=== PATIENT | female | born 1960 | race Caucasian/White ===

== ENCOUNTER → 2016-04-23 | Outpatient (CLI) | payer BC ==
[~2016-04-23] MED LIST: IBUP600T26 PO; NORCOTAB PO
[2016-04-23 07:42] LABS: ALBUMIN 3.4 GM/DL (3.2-5.2); ALBUMIN/GLOBULIN RATIO 0.94 (1.00-1.93); ALKALINE PHOSPHATASE 98 U/L (45-117); ALT/SGPT 28 U/L (12-78); ANION GAP 9 MEQ/L (8-16); AST/SGOT 16 U/L (15-37); BILIRUBIN,TOTAL 0.4 MG/DL (0.2-1.0); BLOOD UREA NITROGEN 12 MG/DL (7-18); CALCIUM LEVEL 8.5 MG/DL (8.5-10.1); CARBON DIOXIDE LEVEL 29 MEQ/L (21-32); CHLORIDE LEVEL 108 MEQ/L (98-107); CHOLESTEROL LEVEL 271 MG/DL (<200); CREATININE FOR GFR 0.86 MG/DL (0.55-1.02); GLOMERULAR FILTRATION RATE > 60.0 (>51); GLUCOSE, FASTING 101 MG/DL (70-105); POTASSIUM SERUM 4.3 MEQ/L (3.5-5.1); SODIUM LEVEL 146 MEQ/L (136-145); TRIGLYCERIDES LEVEL 133 MG/DL (<150)
== END ==
LOC: M LAB 06:32
PROVIDERS: ATTEND Emergency Medicine
DX: E78.5 Hyperlipidemia, unspecified (principal); E55.9 Vitamin D deficiency, unspecified

== ENCOUNTER → 2016-05-18 | Outpatient (CLI) | payer BC ==
[~2016-05-18] VITALS: Ht 165.1 cm; Wt 86.2 kg
[~2016-05-18] MED LIST changes: +DRIS50002 PO; +LIDOCAINE 2% INJ 100 MG/5 ML SDV (FOR ANES.) As Ordered ONE; +LR 1,000 ML IV SCH; +PAXI30TA11 PO; +PROPOFOL 200 MG/20 ML VIAL As Ordered ONE
[2016-05-18 15:00] VITALS: BP 132/68
--- NOTE | 2016-05-18 15:01 | ROOR ---
Patient Name: Vianey Causey Procedure Date: 05/18/2016 2:19 PM Date of : 1960 Age: 55 Room: [facility] Gender: Female Note Status: Finalized Procedure: Colonoscopy Indications: Screening for colorectal malignant neoplasm, This is the patient's first colonoscopy Providers: Lee Wilson MD Referring MD: WALI ANDREA MD Requesting Provider: Medicines: Monitored Anesthesia Care Complications: No immediate complications. Procedure: Pre-Anesthesia Assessment: - Prior to the procedure, a History and Physical was performed, and patient medications and allergies were reviewed. The patient is competent. The risks and benefits of the procedure and the sedation options and risks were discussed with the patient. All questions were answered and informed consent was obtained. Patient identification and proposed procedure were verified by the physician, the nurse and the anesthesiologist in the procedure room. Mental Status Examination: alert and oriented. Airway Examination: normal oropharyngeal airway and neck mobility. CV Examination: regular rate and rhythm. Prophylactic Antibiotics: The patient does not require prophylactic antibiotics. Prior Anticoagulants: The patient has taken no previous anticoagulant or antiplatelet agents. ASA Grade Assessment: II - A patient with mild systemic disease. After reviewing the risks and benefits, the patient was deemed in satisfactory condition to undergo the procedure. The anesthesia plan was to use monitored anesthesia care (MAC). Immediately prior to administration of medications, the patient was re-assessed for adequacy to receive sedatives. The heart rate, respiratory rate, oxygen saturations, blood pressure, adequacy of pulmonary ventilation, and response to care were monitored throughout the procedure. The physical status of the patient was re-assessed after the procedure. The Colonoscope was introduced through the anus and advanced to the cecum, identified by appendiceal orifice and ileocecal valve. The colonoscopy was performed without difficulty. The patient tolerated the procedure well. The quality of the bowel preparation was excellent. Findings: The perianal and digital rectal examinations were normal. The colon (entire examined portion) appeared normal. Impression: - The entire examined colon is normal. - No specimens collected. Recommendation: - Discharge patient to home. - Resume previous diet. - Continue present medications. - Repeat colonoscopy in 10 years for screening purposes. Lee Wilson MD 05/18/2016 3:01:20 PM Number of Addenda: 0 Note Initiated On: 05/18/2016 2:19 PM Estimated Blood Loss: Estimated blood loss: none.
== END | disposition home or self-care (01) ==
LOC: M OPP 13:52
PROVIDERS: ATTEND Surgery
DX: Z12.11 Encounter for screening for malignant neoplasm of colon (principal); E78.00 Pure hypercholesterolemia, unspecified; F41.9 Anxiety disorder, unspecified; E66.9 Obesity, unspecified; F17.200 Nicotine dependence, unspecified, uncomplicated; Z79.899 Other long term (current) drug therapy; Z88.8 Allergy status to other drugs, medicaments and biological substances; Z88.5 Allergy status to narcotic agent; Z88.1 Allergy status to other antibiotic agents
CPT/HCPCS: 99156; 99157; G0121

== ENCOUNTER → 2016-07-23 | Outpatient (CLI) | payer BC ==
[~2016-07-23] MED LIST changes: -LIDOCAINE 2% INJ 100 MG/5 ML SDV (FOR ANES.) As Ordered ONE; -LR 1,000 ML IV SCH; -PROPOFOL 200 MG/20 ML VIAL As Ordered ONE
--- NOTE | 2016-07-23 13:22 | REP ---
Low-dose lung screening CT: The study is performed without IV contrast and presented at lung windowing only. Comparison study is a PA and lateral plain film study of 05/20/2011. There is a 11 mm nodule inferiorly in the lingula on image 68. There are no other lung nodules or masses. There are no infiltrates or effusions. Impression: Category 4A low-dose screening lung CT. 3-month follow-up low-dose CT is recommended. Also consider PET scan. Signed by Rudy Petersen MD 07/23/2016 01:13 P
== END ==
LOC: M RAD 11:39
PROVIDERS: ATTEND Emergency Medicine
DX: Z12.2 Encounter for screening for malignant neoplasm of respiratory organs (principal); F17.210 Nicotine dependence, cigarettes, uncomplicated; R91.1 Solitary pulmonary nodule

== ENCOUNTER → 2016-11-09 | Outpatient (CLI) | payer BC ==
[~2016-11-09] MED LIST changes: +IBUP-1022 PO; -IBUP600T26 PO
--- NOTE | 2016-11-09 17:25 | REP ---
PET/CT: History: Solitary pulmonary nodule. Screening low-dose chest CT July 23, 2016 showed a 1.1 cm density in the lingula. There is also a history of endometrial carcinoma, status post hysterectomy. Comparisons: Comparison CT study November 17, 2015 and July 23, 2016. TECHNIQUE: 49 minutes following the intravenous injection of a 7.5 mCi dose of F-18 FDG, three-dimensional PET scintigraphy is acquired from the skull base to the proximal thighs. Triplanar noncontrast CT scanning is acquired through the same anatomic range for attenuation correction, and image registration with scan parameters optimized to minimize radiation exposure to the patient. PET scintigraphy and CT datasets were fused and displayed on a workstation with multiplanar and projection display capability. PET/CT Findings: There is no discernible FDG accumulation in the area of soft tissue density in the lingula. Maximum standard uptake value in this region is 0.5. It has a somewhat linear morphology on coronal and sagittal reformations images and may be fibrosis or chronic subsegmental atelectasis. No other hypermetabolic pulmonary uptake is seen. No hypermetabolic hilar or mediastinal uptake is observed. Head and neck soft tissues are unremarkable. In the abdomen and pelvis, there is no abnormal hypermetabolic uptake. No abnormal skeletal hypermetabolic uptake is seen. Impression: Negative PET scintigraphy. No abnormal hypermetabolic uptake seen. Signed by Sudeep Jade MD 11/10/2016 08:17 A
== END ==
LOC: M PLARAD 12:35
PROVIDERS: ATTEND Internal Medicine Pulmonary Disease
DX: R91.1 Solitary pulmonary nodule (principal); Z85.42 Personal history of malignant neoplasm of other parts of uterus
CPT/HCPCS: 78815; A9552

== ENCOUNTER → 2017-03-22 | Outpatient (CLI) | payer BC | LOC: M RAD 14:38 | DX: R91.1 Solitary pulmonary nodule (principal) | CPT/HCPCS: 71250 ==

== ENCOUNTER → 2017-11-22 | Outpatient (CLI) | payer BC ==
[2017-11-22 07:41] LABS: ALBUMIN 3.6 GM/DL (3.2-5.2); ALBUMIN/GLOBULIN RATIO 1.06 (1.00-1.93); ALKALINE PHOSPHATASE 85 U/L (45-117); ALT/SGPT 32 U/L (12-78); ANION GAP 7 MEQ/L (8-16); AST/SGOT 18 U/L (7-37); BILIRUBIN,TOTAL 0.4 MG/DL (0.2-1.0); BLOOD UREA NITROGEN 14 MG/DL (7-18); CALCIUM LEVEL 8.8 MG/DL (8.5-10.1); CARBON DIOXIDE LEVEL 29 MEQ/L (21-32); CHLORIDE LEVEL 109 MEQ/L (98-107); CHOLESTEROL LEVEL 153 MG/DL (<200); CHOLESTEROL RISK RATIO 2.833 (<5); CREATININE FOR GFR 0.92 MG/DL (0.55-1.30); GLOMERULAR FILTRATION RATE > 60.0 (>51); GLUCOSE, FASTING 89 MG/DL (70-100); HDL CHOLESTEROL 54 MG/DL (>40); LDL CHOLESTEROL 72 MG/DL (<100); NON-HDL-C 99 MG/DL; SODIUM LEVEL 145 MEQ/L (136-145); TRIGLYCERIDES LEVEL 134 MG/DL (<150)
== END ==
LOC: M LAB 06:34
DX: E78.5 Hyperlipidemia, unspecified (principal)
CPT/HCPCS: 80053

== ENCOUNTER → 2018-12-13 | Outpatient (CLI) | payer BC ==
[~2018-12-13] MED LIST changes: -DRIS50002 PO; +DRIS50003 PO; +HYDR-3715 PO; -NORCOTAB PO
--- NOTE | 2018-12-13 16:59 | REP ---
Five views lumbar spine: 12/13/2018. Indication: Low back pain. Comparison: 03/18/2008. Findings: There is no acute fracture, subluxation or dislocation. No erosive lesions of the lumbar spine are detected. Disc space narrowing is present most pronounced at L3/L4. Osseous spurring anteriorly at L3/L4 is additionally noted. Aortoiliac atherosclerotic disease is present. Impression: No acute osseous injury of the lumbar spine detected. Electronically Signed by Indio Russell DO 12/13/2018 04:51 P
[2018-12-13 17:16] LABS: BASO % 0.4 % (0.0-1.0); EOS # 0.3 10^3/uL (0.0-0.5); EOS % 3.3 % (0.0-3.0); HEMATOCRIT 49.5 % (36.0-47.0); LYMPH # 3.3 10^3/uL (1.5-5.0); LYMPH % 35.4 % (24.0-44.0); MEAN CORPUSCULAR HEMOGLOBIN 29.8 pg (27.0-33.0); MEAN CORPUSCULAR HGB CONC 32.3 g/dl (32.0-36.5); MEAN CORPUSCULAR VOLUME 92.2 fl (80.0-96.0); MONO # 0.5 10^3/uL (0.0-0.8); MONO % 5.7 % (0.0-5.0); NEUTROPHILS # 5.1 10^3/uL (1.5-8.5); PLATELET COUNT, AUTOMATED 275 10^3/uL (150-450); RED BLOOD COUNT 5.37 10^6/uL (4.00-5.40); WHITE BLOOD COUNT 9.3 10^3/uL (4.0-10.0)
[2018-12-13 17:21] LABS: ALBUMIN 3.7 GM/DL (3.2-5.2); ALT/SGPT 38 U/L (12-78); AMYLASE 52 U/L (25-115); BILIRUBIN,TOTAL 0.3 MG/DL (0.2-1.0); BLOOD UREA NITROGEN 13 MG/DL (7-18); CALCIUM LEVEL 8.7 MG/DL (8.5-10.1); CARBON DIOXIDE LEVEL 30 MEQ/L (21-32); CHLORIDE LEVEL 106 MEQ/L (98-107); FREE T4 0.85 NG/DL (0.76-1.46); GLOMERULAR FILTRATION RATE > 60.0 (>51); GLUCOSE, FASTING 82 MG/DL (70-100); LIPASE 129 U/L (73-393); POTASSIUM SERUM 4.2 MEQ/L (3.5-5.1); SODIUM LEVEL 140 MEQ/L (136-145); TOTAL PROTEIN 7.3 GM/DL (6.4-8.2)
[2018-12-13 18:42] LABS: ERYTHROCYTE SEDIMENTATION RATE 6 mm/hr (0-30)
--- NOTE | 2018-12-14 08:42 | REP ---
Clinical: Epigastric and abdominal pain. Technique: Upright view of the chest with supine and upright views of the abdomen and pelvis. Findings: Frontal upright view of the chest demonstrates no acute cardiopulmonary process or free air below the diaphragm to suspect pneumoperitoneum. Supine and upright views of the abdomen and pelvis demonstrate nonspecific bowel gas pattern without obstruction or perforation. No organomegaly. No abnormal calcifications. Skeletal structures normal for age. Impression: Nonspecific bowel gas pattern. Electronically Signed by Tan Carlos MD 12/14/2018 08:34 A
== END ==
LOC: M WUC 12:32
PROVIDERS: ATTEND Physician Assistant
DX: M54.5 Low back pain (principal); R10.84 Generalized abdominal pain

== ENCOUNTER → 2018-12-13 | Outpatient (CLI) | payer BC ==
[2018-12-13 17:14] LABS: ALBUMIN 3.8 GM/DL (3.2-5.2); ALT/SGPT 38 U/L (12-78); BILIRUBIN,TOTAL 0.3 MG/DL (0.2-1.0); BLOOD UREA NITROGEN 13 MG/DL (7-18); CALCIUM LEVEL 9.1 MG/DL (8.5-10.1); CARBON DIOXIDE LEVEL 30 MEQ/L (21-32); CHLORIDE LEVEL 106 MEQ/L (98-107); CHOLESTEROL LEVEL 197 MG/DL (<200); CHOLESTEROL RISK RATIO 3.177 (<5); CREATININE FOR GFR 0.92 MG/DL (0.55-1.30); GLOMERULAR FILTRATION RATE > 60.0 (>51); GLUCOSE, FASTING 84 MG/DL (70-100); HDL CHOLESTEROL 62 MG/DL (>40); LDL CHOLESTEROL 108 MG/DL (<100); NON-HDL-C 135 MG/DL; POTASSIUM SERUM 4.1 MEQ/L (3.5-5.1); SODIUM LEVEL 142 MEQ/L (136-145); TOTAL PROTEIN 7.4 GM/DL (6.4-8.2); TRIGLYCERIDES LEVEL 133 MG/DL (<150)
[2018-12-13 17:16] LABS: BASO % 0.4 % (0.0-1.0); EOS # 0.3 10^3/uL (0.0-0.5); HEMATOCRIT 50.8 % (36.0-47.0); HEMOGLOBIN 16.3 g/dl (12.0-15.5); LYMPH # 3.3 10^3/uL (1.5-5.0); MEAN CORPUSCULAR HEMOGLOBIN 30.1 pg (27.0-33.0); MEAN CORPUSCULAR HGB CONC 32.1 g/dl (32.0-36.5); MEAN CORPUSCULAR VOLUME 93.7 fl (80.0-96.0); MONO # 0.5 10^3/uL (0.0-0.8); MONO % 5.6 % (0.0-5.0); NEUTROPHILS % 54.8 % (36.0-66.0); PLATELET COUNT, AUTOMATED 268 10^3/uL (150-450); RED BLOOD COUNT 5.42 10^6/uL (4.00-5.40); WHITE BLOOD COUNT 9.1 10^3/uL (4.0-10.0)
[2018-12-13 17:23] LABS: TOTAL 25(OH) VITAMIN D 28.2 NG/ML (30.0-100.0)
== END ==
LOC: M WUC 13:30
PROVIDERS: ATTEND Physician Assistant
DX: E78.5 Hyperlipidemia, unspecified (principal); E55.9 Vitamin D deficiency, unspecified; F17.210 Nicotine dependence, cigarettes, uncomplicated; Z11.59 Encounter for screening for other viral diseases

== ENCOUNTER → 2018-12-20 | Outpatient (CLI) | payer BC ==
--- NOTE | 2018-12-20 07:47 | REP ---
Clinical: Generalized abdominal pain. Technique: Real time bartlett scale ultrasound examination using curved array transducer. Findings: Liver, spleen, and visualized pancreas are normal in contour, size, echogenicity without focal hepatic, splenic or pancreatic lesion identified. Gallbladder is normal and without gallstones, wall thickening, or pericholecystic fluid. No biliary ductal dilatation is appreciated and the common bile duct measures 4.4 mm diameter. Spleen measures 10 cm in maximal length. The bilateral kidneys are normal in appearance without hydronephrosis. Right kidney measures 10.5 x 4.4 x 4.9 cm. Left kidney measures 11.3 x 4.8 x 4.5 cm. No ascites. Visualized abdominal aorta normal. Impression: Normal complete abdominal ultrasound. Electronically Signed by Tan Carlos MD 12/20/2018 07:39 A
== END ==
LOC: M RAD 06:50
PROVIDERS: ATTEND Physician Assistant
DX: R10.84 Generalized abdominal pain (principal)

== ENCOUNTER → 2020-06-02 | Outpatient (CLI) | payer BC ==
--- NOTE | 2020-06-02 16:24 | REP ---
INDICATION: ATH ABRAM ART OF EXT W INT LEXI ELA LEGS. COMPARISON: 03/22/2017 the standard helical noncontrast enhanced CT of the chest and 07/23/2016 a low-dose screening lung CT exam TECHNIQUE: Axial noncontrast images from the thoracic inlet to the upper abdomen using low-dose lung screening technique (LDCT). As per the protocol only lung window images were sent to the read station for interpretation. FINDINGS: There are no new abnormal nodules, masses, or opacities. There is mild cylindrical bronchiectasis. Grossly, the mediastinum and pulmonary carol are unchanged. Grossly, the imaged upper abdomen and imaged osseous structures are unchanged. There are no pleural or pericardial effusions. IMPRESSION: Lung rads category 2 low-dose screening CT examination of the lungs. <Electronically signed by Shekhar Corado > 06/02/20 [id number]
== END ==
LOC: M RAD 15:42
PROVIDERS: ATTEND Physician Assistant Medical
DX: Z12.2 Encounter for screening for malignant neoplasm of respiratory organs (principal); F17.210 Nicotine dependence, cigarettes, uncomplicated; J47.9 Bronchiectasis, uncomplicated

== ENCOUNTER → 2020-06-05 | Outpatient (CLI) | payer BC ==
[2020-06-05 11:35] LABS: ALBUMIN 3.6 GM/DL (3.2-5.2); ALT/SGPT 29 U/L (12-78); BILIRUBIN,TOTAL 0.3 MG/DL (0.2-1.0); BLOOD UREA NITROGEN 14 MG/DL (7-18); CALCIUM LEVEL 9.2 MG/DL (8.5-10.1); CARBON DIOXIDE LEVEL 29 MEQ/L (21-32); CHLORIDE LEVEL 107 MEQ/L (98-107); CHOLESTEROL LEVEL 140 MG/DL (<200); CHOLESTEROL RISK RATIO 2.592 (<5); CREATININE FOR GFR 0.83 MG/DL (0.55-1.30); GLOMERULAR FILTRATION RATE > 60.0 (>51); GLUCOSE, FASTING 92 MG/DL (70-100); HDL CHOLESTEROL 54 MG/DL (>40); LDL CHOLESTEROL 63 MG/DL (<100); NON-HDL-C 86 MG/DL; POTASSIUM SERUM 4.3 MEQ/L (3.5-5.1); SODIUM LEVEL 142 MEQ/L (136-145); TRIGLYCERIDES LEVEL 114 MG/DL (<150)
== END ==
LOC: M WUC 08:16
PROVIDERS: ATTEND Physician Assistant Medical
DX: E78.5 Hyperlipidemia, unspecified (principal); E55.9 Vitamin D deficiency, unspecified

== ENCOUNTER → 2021-05-28 | Outpatient (CLI) | payer BC | LOC: M RAD 15:38 | PROVIDERS: ATTEND Nurse Practitioner Family | DX: Z12.2 Encounter for screening for malignant neoplasm of respiratory organs (principal); F17.210 Nicotine dependence, cigarettes, uncomplicated; J47.9 Bronchiectasis, uncomplicated; I70.0 Atherosclerosis of aorta; I25.10 Atherosclerotic heart disease of native coronary artery without angina pectoris; J43.9 Emphysema, unspecified; J84.9 Interstitial pulmonary disease, unspecified ==

== ENCOUNTER → 2021-06-22 | Outpatient (CLI) | payer BC ==
[2021-06-23 12:03] LABS: BASO # 0.1 10^3/uL (0.0-0.2); BASO % 0.5 % (0.0-1.0); EOS # 0.3 10^3/uL (0.0-0.5); HEMATOCRIT 49.4 % (36.0-47.0); HEMOGLOBIN 15.1 g/dl (12.0-15.5); LYMPH # 3.3 10^3/uL (1.5-5.0); LYMPH % 30.7 % (24.0-44.0); MEAN CORPUSCULAR HEMOGLOBIN 29.8 pg (27.0-33.0); MEAN CORPUSCULAR HGB CONC 30.6 g/dl (32.0-36.5); MEAN CORPUSCULAR VOLUME 97.6 fl (80.0-96.0); MONO # 0.6 10^3/uL (0.0-0.8); MONO % 5.6 % (2.0-8.0); NEUTROPHILS # 6.5 10^3/uL (1.5-8.5); PLATELET COUNT, AUTOMATED 284 10^3/uL (150-450); RED BLOOD COUNT 5.06 10^6/uL (4.00-5.40); WHITE BLOOD COUNT 10.8 10^3/uL (4.0-10.0)
[2021-06-23 12:29] LABS: ERYTHROCYTE SEDIMENTATION RATE 4 mm/hr (0-30)
[2021-06-23 14:21] LABS: C REACTIVE PROTEIN QUANTITATIV < 0.30 MG/DL (0.00-0.30); FREE T4 0.92 NG/DL (0.76-1.46); RHEUMATOID FACTOR QUANT < 10.0 IU/ML (<15.0); TOTAL 25(OH) VITAMIN D 34.5 NG/ML (30.0-100.0)
[2021-06-23 14:36] LABS: LDH LACTATE DEHYDROGENASE 236 U/L (84-246)
== END ==
LOC: M RAD 16:39
PROVIDERS: ATTEND Nurse Practitioner Family
DX: M79.672 Pain in left foot (principal); M12.9 Arthropathy, unspecified

== ENCOUNTER → 2021-06-25 | Outpatient (CLI) | payer BC ==
[2021-06-25 16:56] LABS: ALBUMIN 3.6 GM/DL (3.2-5.2); ALT/SGPT 28 U/L (12-78); BILIRUBIN,TOTAL 0.3 MG/DL (0.2-1.0); BLOOD UREA NITROGEN 17 MG/DL (7-18); CALCIUM LEVEL 9.1 MG/DL (8.5-10.1); CARBON DIOXIDE LEVEL 32 MEQ/L (21-32); CHLORIDE LEVEL 107 MEQ/L (98-107); GLOMERULAR FILTRATION RATE > 60.0 (>51); GLUCOSE, FASTING 86 MG/DL (70-100); POTASSIUM SERUM 4.4 MEQ/L (3.5-5.1); SODIUM LEVEL 142 MEQ/L (136-145); TOTAL PROTEIN 7.1 GM/DL (6.4-8.2)
== END ==
LOC: M LAB 16:00
PROVIDERS: ATTEND Nurse Practitioner Family
DX: M12.9 Arthropathy, unspecified (principal)

== ENCOUNTER → 2021-08-31 | Outpatient (CLI) | payer BC | LOC: M WUC 15:40 | PROVIDERS: ATTEND Student in an Organized Health Care Education/Training Program | DX: J20.9 Acute bronchitis, unspecified (principal) ==

== ENCOUNTER → 2022-03-02 | Outpatient (CLI) | payer BC ==
[~2022-03-02] MED LIST changes: -PAXI30TA11 PO; +PAXI30TA12 PO
[2022-03-02 17:37] LABS: ALBUMIN 3.7 G/DL (3.2-5.2); ALKALINE PHOSPHATASE 74 U/L (46-116); ALT/SGPT 22 U/L (7.0-40); AST/SGOT 19 U/L (<34); BILIRUBIN,TOTAL 0.3 MG/DL (0.3-1.2); BLOOD UREA NITROGEN 16 MG/DL (9-23); CALCIUM LEVEL 9.2 MG/DL (8.3-10.6); CARBON DIOXIDE LEVEL 30 MMOL/L (20-31); CHLORIDE LEVEL 105 MMOL/L (98-107); CREATININE FOR GFR 0.92 MG/DL (0.55-1.30); GLOMERULAR FILTRATION RATE > 60.0 (>45); GLUCOSE, FASTING 88 MG/DL (74-106); POTASSIUM SERUM 4.2 MMOL/L (3.5-5.1); SODIUM LEVEL 142 MMOL/L (136-145); TOTAL PROTEIN 6.6 G/DL (5.7-8.2)
[2022-03-02 17:39] LABS: BASO % 0.4 % (0.0-1.0); EOS # 0.2 10^3/uL (0.0-0.5); EOS % 1.9 % (0.0-3.0); HEMATOCRIT 49.6 % (36.0-47.0); HEMOGLOBIN 15.7 g/dl (12.0-15.5); LYMPH # 2.7 10^3/uL (1.5-5.0); LYMPH % 27.4 % (24.0-44.0); MEAN CORPUSCULAR HEMOGLOBIN 29.6 pg (27.0-33.0); MEAN CORPUSCULAR HGB CONC 31.7 g/dl (32.0-36.5); MEAN CORPUSCULAR VOLUME 93.4 fl (80.0-96.0); MONO # 0.8 10^3/uL (0.0-0.8); MONO % 7.6 % (2.0-8.0); NEUTROPHILS # 6.2 10^3/uL (1.5-8.5); NEUTROPHILS % 62.3 % (36.0-66.0); PLATELET COUNT, AUTOMATED 284 10^3/uL (150-450); RED BLOOD COUNT 5.31 10^6/uL (4.00-5.40)
== END ==
LOC: M LAB 16:25
PROVIDERS: ATTEND Registered Nurse
DX: R10.10 Upper abdominal pain, unspecified (principal)

== ENCOUNTER 2022-03-12 18:56 | Emergency (ER) | payer BC ==
[~2022-03-12] VITALS: Ht 165.1 cm; Wt 82.3 kg
[2022-03-12] MEDS ORDERED: PANT-23 PO (19:27)
[2022-03-12] MEDS ORDERED: CRES20TA2 PO (19:27)
[2022-03-12] MEDS ORDERED: ISOVUE-370 76% 100ML VIAL As Ordered ONE (20:09)
[2022-03-12] MEDS ORDERED: SUCRALFATE 1 GM TAB PO ONE (20:10)
[2022-03-12] MEDS ORDERED: GI COCKTAIL 50ML BTL(HYOSCYAMINE/MAALOX/LIDOCAINE VISCOUS)(1:3:1) PO ONE (20:10)
[2022-03-12] MEDS ORDERED: NS 1,000 ML IV ONE (20:10)
[2022-03-12 20:24] LABS: BASO # 0.1 10^3/uL (0.0-0.2); BASO % 0.5 % (0.0-1.0); EOS # 0.3 10^3/uL (0.0-0.5); EOS % 2.5 % (0.0-3.0); HEMATOCRIT 46.9 % (36.0-47.0); LYMPH # 3.8 10^3/uL (1.5-5.0); LYMPH % 31.4 % (24.0-44.0); MEAN CORPUSCULAR HEMOGLOBIN 30.2 pg (27.0-33.0); MEAN CORPUSCULAR VOLUME 94.4 fl (80.0-96.0); MONO # 0.8 10^3/uL (0.0-0.8); MONO % 6.1 % (2.0-8.0); NEUTROPHILS # 7.2 10^3/uL (1.5-8.5); NEUTROPHILS % 59.2 % (36.0-66.0); PLATELET COUNT, AUTOMATED 265 10^3/uL (150-450); RED BLOOD COUNT 4.97 10^6/uL (4.00-5.40); WHITE BLOOD COUNT 12.2 10^3/uL (4.0-10.0)
[2022-03-12 21:15] LABS: ALBUMIN 3.5 G/DL (3.2-5.2); ALKALINE PHOSPHATASE 80 U/L (46-116); ALT/SGPT 18 U/L (7.0-40); AST/SGOT 17 U/L (<34); BILIRUBIN,DIRECT < 0.1 MG/DL (<0.4); BILIRUBIN,TOTAL 0.2 MG/DL (0.3-1.2); LIPASE 37 U/L (12-53); TOTAL PROTEIN 6.4 G/DL (5.7-8.2)
[2022-03-12 22:18] LABS: CK-MB VALUE MASS < 1.0 NG/ML (<3.6)
[2022-03-12 22:20] LABS: CPK CREATINE PHOSPHOKINASE 92 U/L (34-145); MB/CK RELATIVE INDEX 1.08 (< OR =4)
[2022-03-12] MEDS ORDERED: FAMO20TA PO (22:33)
[2022-03-12] MEDS ORDERED: CARA1TAB6 PO (22:33)
[2022-03-12 22:45] VITALS: BP 161/74
[2022-03-22] MEDS ORDERED: VITA1CAP25 PO (11:20)
[2022-03-22] MEDS ORDERED: MULTTAB86 PO (11:20)
[2022-03-22] MEDS ORDERED: CALC600T60 PO (11:20)
== END 2022-03-12 22:54 | disposition home or self-care (01) ==
LOC: M ED 18:56
DX: R10.9 Unspecified abdominal pain (principal); R11.0 Nausea; E78.5 Hyperlipidemia, unspecified; F17.200 Nicotine dependence, unspecified, uncomplicated; Z88.5 Allergy status to narcotic agent; Z88.8 Allergy status to other drugs, medicaments and biological substances; Z79.899 Other long term (current) drug therapy

== ENCOUNTER → 2022-03-21 | Outpatient (CLI) | payer BC ==
[~2022-03-21] MED LIST changes: +CALC600T60 PO; +CARA1TAB6 PO; +CRES20TA2 PO; +FAMO20TA PO; +MULTTAB86 PO; +PANT-23 PO; +VITA1CAP25 PO
== END ==
LOC: M LABSMTC 09:26
PROVIDERS: ATTEND Anesthesiology
DX: Z01.812 Encounter for preprocedural laboratory examination (principal); Z11.52 Encounter for screening for COVID-19

== ENCOUNTER 2022-03-24 10:33 | Day surgery (SDC) | payer BC ==
[~2022-03-24] VITALS: Ht 165.1 cm; Wt 77.5 kg
[~2022-03-24 10:33] MED LIST changes: +NS 1,000 ML IV ONE
[2022-03-24] MEDS ORDERED: LIDOCAINE 2% 100MG/5ML SDV (FOR ANES.) As Ordered ONE (11:58)
[2022-03-24] MEDS ORDERED: propofoL 200 MG/20 ML VIAL As Ordered ONE (12:11)
[2022-03-24 12:52] VITALS: BP 123/74
== END 2022-03-24 13:10 | disposition home or self-care (01) ==
LOC: M OPP 10:33
PROVIDERS: ATTEND Surgery
DX: K64.1 Second degree hemorrhoids (principal); R63.4 Abnormal weight loss; K22.89 Other specified disease of esophagus; K29.70 Gastritis, unspecified, without bleeding; R10.13 Epigastric pain; E78.00 Pure hypercholesterolemia, unspecified; F17.200 Nicotine dependence, unspecified, uncomplicated; Z79.02 Long term (current) use of antithrombotics/antiplatelets; Z79.899 Other long term (current) drug therapy; Z88.1 Allergy status to other antibiotic agents; Z88.5 Allergy status to narcotic agent; Z88.8 Allergy status to other drugs, medicaments and biological substances; Z80.1 Family history of malignant neoplasm of trachea, bronchus and lung; Z80.3 Family history of malignant neoplasm of breast; Z85.41 Personal history of malignant neoplasm of cervix uteri

== ENCOUNTER → 2022-03-30 | Outpatient (CLI) | payer BC ==
[~2022-03-30] MED LIST changes: +ISOVUE-370 76% 100ML VIAL As Ordered ONE; -NS 1,000 ML IV ONE
== END ==
LOC: M RAD 06:37
PROVIDERS: ATTEND Surgery
DX: R10.13 Epigastric pain (principal); R63.4 Abnormal weight loss; M47.9 Spondylosis, unspecified; I70.0 Atherosclerosis of aorta

== ENCOUNTER → 2022-04-22 | Outpatient (CLI) | payer BC ==
[~2022-04-22] MED LIST changes: -ISOVUE-370 76% 100ML VIAL As Ordered ONE
== END ==
LOC: M RAD 08:03
PROVIDERS: ATTEND Surgery
DX: R10.13 Epigastric pain (principal); R63.4 Abnormal weight loss; K82.8 Other specified diseases of gallbladder
CPT/HCPCS: 78227; A9537

== ENCOUNTER → 2022-06-22 | Outpatient (CLI) | payer BC ==
[2022-06-22 11:13] LABS: BASO # 0.1 10^3/uL (0.0-0.2); BASO % 0.6 % (0.0-1.0); EOS # 0.4 10^3/uL (0.0-0.5); EOS % 3.4 % (0.0-3.0); HEMATOCRIT 50.3 % (36.0-47.0); HEMOGLOBIN 16.2 g/dl (12.0-15.5); LYMPH # 2.5 10^3/uL (1.5-5.0); LYMPH % 24.8 % (24.0-44.0); MEAN CORPUSCULAR HEMOGLOBIN 30.2 pg (27.0-33.0); MEAN CORPUSCULAR HGB CONC 32.2 g/dl (32.0-36.5); MEAN CORPUSCULAR VOLUME 93.8 fl (80.0-96.0); MONO # 0.7 10^3/uL (0.0-0.8); NEUTROPHILS # 6.5 10^3/uL (1.5-8.5); NEUTROPHILS % 63.9 % (36.0-66.0); PLATELET COUNT, AUTOMATED 286 10^3/uL (150-450); RED BLOOD COUNT 5.36 10^6/uL (4.00-5.40); WHITE BLOOD COUNT 10.2 10^3/uL (4.0-10.0)
[2022-06-22 11:45] LABS: ALBUMIN 3.5 G/DL (3.2-5.2); ALKALINE PHOSPHATASE 82 U/L (46-116); ALT/SGPT 27 U/L (7.0-40); AST/SGOT 20 U/L (<34); BILIRUBIN,TOTAL 0.5 MG/DL (0.3-1.2); BLOOD UREA NITROGEN 15 MG/DL (9-23); CALCIUM LEVEL 9.2 MG/DL (8.3-10.6); CARBON DIOXIDE LEVEL 30 MMOL/L (20-31); CHLORIDE LEVEL 107 MMOL/L (98-107); CHOLESTEROL LEVEL 148 MG/DL (<200); CHOLESTEROL RISK RATIO 3.03 (<5); GLOMERULAR FILTRATION RATE > 60.0 (>45); GLUCOSE, FASTING 89 MG/DL (74-106); HDL CHOLESTEROL 48.8 MG/DL (>40); NON-HDL-C 99.2 MG/DL; POTASSIUM SERUM 4.6 MMOL/L (3.5-5.1); SODIUM LEVEL 145 MMOL/L (136-145); TOTAL PROTEIN 6.5 G/DL (5.7-8.2); TRIGLYCERIDES LEVEL 106 MG/DL (<150)
== END ==
LOC: M WUC 08:18
PROVIDERS: ATTEND Nurse Practitioner Family
DX: K82.8 Other specified diseases of gallbladder (principal); Z01.818 Encounter for other preprocedural examination

== ENCOUNTER → 2023-03-11 | Outpatient (CLI) | payer BC | LOC: M RAD 14:37 | PROVIDERS: ATTEND Nurse Practitioner Family | DX: Z12.2 Encounter for screening for malignant neoplasm of respiratory organs (principal); F17.210 Nicotine dependence, cigarettes, uncomplicated; I70.0 Atherosclerosis of aorta; I25.10 Atherosclerotic heart disease of native coronary artery without angina pectoris; J84.10 Pulmonary fibrosis, unspecified ==

== ENCOUNTER → 2024-04-20 | Outpatient (CLI) | payer BC | LOC: M RAD 08:37 | PROVIDERS: ATTEND Nurse Practitioner Family | DX: Z87.891 Personal history of nicotine dependence (principal) ==

== ENCOUNTER → 2024-05-18 | Outpatient (CLI) | payer BC ==
[2024-05-18 07:27] LABS: BASO % 0.4 % (0.0-1.0); EOS # 0.4 10^3/uL (0.0-0.5); EOS % 4.2 % (0.0-3.0); HEMOGLOBIN 16.8 g/dl (12.0-15.5); LYMPH # 2.3 10^3/uL (1.5-5.0); LYMPH % 22.1 % (24.0-44.0); MEAN CORPUSCULAR HEMOGLOBIN 30.3 pg (27.0-33.0); MEAN CORPUSCULAR HGB CONC 32.3 g/dl (32.0-36.5); MEAN CORPUSCULAR VOLUME 93.9 fl (80.0-96.0); MONO # 0.6 10^3/uL (0.0-0.8); MONO % 6.2 % (2.0-8.0); NEUTROPHILS # 6.8 10^3/uL (1.5-8.5); NEUTROPHILS % 66.8 % (36.0-66.0); PLATELET COUNT, AUTOMATED 252 10^3/uL (150-450); RED BLOOD COUNT 5.54 10^6/uL (4.00-5.40); WHITE BLOOD COUNT 10.2 10^3/uL (4.0-10.0)
[2024-05-18 08:01] LABS: ALBUMIN 3.5 G/DL (3.2-5.2); BILIRUBIN,TOTAL 0.4 MG/DL (0.3-1.2); CALCIUM LEVEL 9.5 MG/DL (8.3-10.6); CHOLESTEROL RISK RATIO 3.85 (<5); CREATININE FOR GFR 0.75 MG/DL (0.55-1.30); HDL CHOLESTEROL 50.9 MG/DL (>40); LDL CHOLESTEROL 125.5 MG/DL (<100); NON-HDL-C 145.1 MG/DL; POTASSIUM SERUM 4.4 MMOL/L (3.5-5.1); TOTAL PROTEIN 6.6 G/DL (5.7-8.2)
[2024-05-18 08:02] LABS: FREE T4 1.41 NG/DL (0.89-1.76); THYROID STIMULATING HORMONE 0.048 uIU/ML (0.55-4.78)
[2024-05-18 08:03] LABS: TOTAL 25(OH) VITAMIN D 64.8 NG/ML (20.0-100.0)
== END ==
LOC: M LAB 06:44
PROVIDERS: ATTEND Nurse Practitioner Family
DX: Z00.00 Encounter for general adult medical examination without abnormal findings (principal); E78.5 Hyperlipidemia, unspecified; E55.9 Vitamin D deficiency, unspecified; F41.1 Generalized anxiety disorder

== ENCOUNTER → 2024-09-14 | Outpatient (CLI) | payer BC ==
[~2024-09-14] MED LIST changes: +ROSU20TA86 PO
== END ==
LOC: M SOG 06:45
PROVIDERS: ATTEND Orthopaedic Surgery
DX: M25.522 Pain in left elbow (principal)

== ENCOUNTER → 2024-11-21 | Outpatient (CLI) | payer BC ==
[~2024-11-21] MED LIST changes: -IBUP-1022 PO; +IBUP600T42 PO
== END ==
LOC: M RAD 09:30
PROVIDERS: ATTEND Nurse Practitioner Family
DX: I73.9 Peripheral vascular disease, unspecified (principal); I25.84 Coronary atherosclerosis due to calcified coronary lesion

== ENCOUNTER 2025-01-15 06:18 | Inpatient (IN) | payer BC ==
[~2025-01-15] VITALS: Ht 165.1 cm; Wt 68.4 kg
[2025-01-15 07:14] LABS: BASO # 0.0 10^3/uL (0.0-0.2); BASO % 0.3 % (0.0-1.0); EOS # 0.3 10^3/uL (0.0-0.5); EOS % 3.3 % (0.0-3.0); LYMPH # 1.8 10^3/uL (1.5-5.0); LYMPH % 20.4 % (24.0-44.0); MONO # 0.5 10^3/uL (0.0-0.8); MONO % 5.0 % (2.0-8.0); NEUTROPHILS # 6.4 10^3/uL (1.5-8.5); NEUTROPHILS % 70.8 % (36.0-66.0); PLATELET COUNT, AUTOMATED 269 10^3/uL (150-450)
[2025-01-15 07:39] LABS: ALT/SGPT 34 U/L (7.0-40); AST/SGOT 24 U/L (<34); CALCIUM LEVEL 9.1 MG/DL (8.3-10.6); CARBON DIOXIDE LEVEL 26 MMOL/L (20-31); CHLORIDE LEVEL 110 MMOL/L (98-107); CREATININE FOR GFR 0.61 MG/DL (0.55-1.30); GLOMERULAR FILTRATION RATE > 90.0 (>45); POTASSIUM SERUM 4.0 MMOL/L (3.5-5.1); SODIUM LEVEL 143 MMOL/L (136-145)
[2025-01-15 08:01] LABS: THYROXINE (T4) 10.3 UG/DL (4.5-10.9)
[2025-01-15] MEDS: NS (Normal Saline) 0.9% 1,000 ML IV ONE (11:40)
[2025-01-15 12:05] LABS: FREE T4 1.46 NG/DL (0.89-1.76)
[2025-01-15] MEDS ORDERED: ISOVUE-370 76% 100 ML VIAL As Ordered ONE (13:56)
[2025-01-15] MEDS ORDERED: HOME MED LIST COMPLETE! XX SCH (15:00)
[2025-01-15] MEDS: MECLIZINE 25 MG TABLET PO ONE (16:43)
[2025-01-16 03:12] VITALS: BP 139/72; TEMP 98.7; O2SAT 96
[2025-01-16 06:08] VITALS: BP 129/68; TEMP 98.8; O2SAT 94
[2025-01-16 06:39] LABS: PLATELET COUNT, AUTOMATED 234 10^3/uL (150-450)
[2025-01-16 06:58] LABS: CALCIUM LEVEL 8.6 MG/DL (8.3-10.6); CARBON DIOXIDE LEVEL 28 MMOL/L (20-31); CHLORIDE LEVEL 112 MMOL/L (98-107); CREATININE FOR GFR 0.61 MG/DL (0.55-1.30); GLOMERULAR FILTRATION RATE > 90.0 (>45); POTASSIUM SERUM 4.0 MMOL/L (3.5-5.1); SODIUM LEVEL 145 MMOL/L (136-145)
[2025-01-16] MEDS: ROSUVASTATIN 10 MG TAB PO SCH (08:33)
[2025-01-16] MEDS: PARoxetine 10MG TABLET PO SCH (08:40)
[2025-01-16] MEDS: ENOXAPARIN 40 MG/0.4 ML SYRINGE (J1650 PER 10MG) SC SCH (08:40)
[2025-01-16 11:09] LABS: TOTAL 25(OH) VITAMIN D 58.9 NG/ML (20.0-100.0)
[2025-01-16 12:10] LABS: ESTIMATED AVERAGE GLUCOSE 103.0 MG/DL (60-110)
[2025-01-16 14:22] VITALS: BP 116/60; TEMP 98.5; O2SAT 97
[2025-01-16 21:09] VITALS: BP 149/65; TEMP 98.3; O2SAT 97
[2025-01-17 06:07] VITALS: BP 124/75; TEMP 98.2; O2SAT 95
[2025-01-17 07:53] LABS: PLATELET COUNT, AUTOMATED 249 10^3/uL (150-450)
[2025-01-17 08:34] LABS: ALT/SGPT 34 U/L (7.0-40); AST/SGOT 23 U/L (<34); CALCIUM LEVEL 8.9 MG/DL (8.3-10.6); CARBON DIOXIDE LEVEL 28 MMOL/L (20-31); CHLORIDE LEVEL 107 MMOL/L (98-107); CREATININE FOR GFR 0.60 MG/DL (0.55-1.30); GLOMERULAR FILTRATION RATE > 90.0 (>45); POTASSIUM SERUM 3.9 MMOL/L (3.5-5.1); SODIUM LEVEL 143 MMOL/L (136-145); THYROGLOBULIN ANTIBODY 30.0 U/ML (<60.0); THYROID PEROXIDASE ANTIBODY < 28.0 U/ML (<60.0)
[2025-01-17] MEDS ORDERED: METH-1386 PO (10:58)
[2025-01-17] MEDS ORDERED: MECL-136 PO (11:20)
== END 2025-01-17 12:02 | disposition home or self-care (01) | DRG 424 ==
LOC: M ED 06:18 → M ED INP 06:19 → M MS5PR 01-16 03:10 → OBSVTOIN 01-17 06:53
PROVIDERS: ADMIT Internal Medicine; ATTEND Internal Medicine
DX: E05.90 Thyrotoxicosis, unspecified without thyrotoxic crisis or storm (principal); E55.9 Vitamin D deficiency, unspecified; E78.5 Hyperlipidemia, unspecified; F17.210 Nicotine dependence, cigarettes, uncomplicated; F41.9 Anxiety disorder, unspecified; R26.81 Unsteadiness on feet; R42 Dizziness and giddiness; R53.1 Weakness; F32.A Depression, unspecified; Z88.5 Allergy status to narcotic agent; Z88.8 Allergy status to other drugs, medicaments and biological substances; Z79.899 Other long term (current) drug therapy